=== PATIENT | female | born 1970 | race Caucasian/White ===

== ENCOUNTER 2018-01-07 15:11 | Outpatient (REF) | payer OTHER, SELFPAY ==
--- NOTE | 2018-01-07 16:30 | PAPFT_PTH ---
PATIENT: Edy Lo LOC: [facility] U#:[id number] AGE/SX: 47/F ROOM: RE01/07/[address]: Cassie Newman MD : 1970 BED: DIS: 01/07/2018 SPEC #: [id number] RECD: 01/08/18 12:31 STATUS: MAURO REQ #: [id number] HEVER: 01/07/18 16:[address]: Cassie Newman DEPT: [facility] Cytology RECD BY: Kathi Enriquez Tissues: 1 - CX/ENDOCX FOR PAP SMEARS Procedures: PAP THIN PREP/[facility] Screening HPV DNA PROBE Comments: [id number]
== END 2018-01-07 15:31 ==
LOC: LBN 15:11
PROVIDERS: PCP Internal Medicine; Visit Provider Internal Medicine
DX: Z12.4 Encounter for screening for malignant neoplasm of cervix (principal); Z11.51 Encounter for screening for human papillomavirus (HPV)
CPT/HCPCS: 88142; 87624

== ENCOUNTER 2020-12-13 15:10 | Outpatient (REF) | payer OTHER, SELFPAY ==
--- NOTE | 2020-12-13 10:30 | PAPFT_PTH ---
PATIENT: Edy Lo LOC: [facility] U#:[id number] AGE/SX: 50/F ROOM: RE12/13/[address]: Cassie Newman MD : 1970 BED: DIS: 12/13/2020 SPEC #: [id number] RECD: 12/13/20 16:47 STATUS: MAURO REMargarita #: [id number] HEVER: 12/13/20 10:[address]: Cassie Newman [facility]PT[facility] Cytology RECD BY: Kathi Enriquez Tissues: 1 - CX/ENDOCX FOR PAP SMEARS Procedures: PAP THIN PREP/[facility] Screening HPV DNA PROBE Comments: [id number]
== END 2020-12-13 15:11 | disposition home or self-care (01) ==
LOC: LBN 15:10
PROVIDERS: PCP Internal Medicine; Visit Provider Internal Medicine
DX: Z12.4 Encounter for screening for malignant neoplasm of cervix (principal); Z11.51 Encounter for screening for human papillomavirus (HPV)
CPT/HCPCS: 88142; 87624